=== PATIENT | male | born 1960 | race African-American/Black ===

== ENCOUNTER 2018-04-27 07:04 | Emergency (ER) | payer OTHER ==
[~2018-04-27] VITALS: Ht 167.6 cm; Wt 77.6 kg
[2018-04-27 07:11] VITALS: BP 140/89
[2018-04-27] MEDS ORDERED: ALLOPURINOL 10100 M1 PO (07:12)
[2018-04-27] MEDS ORDERED: TART CHERRY CA1 EACH PO (07:13)
[2018-04-27] MEDS ORDERED: PERCOCET 5-3251 EACH PO (07:23)
[2018-04-27] MEDS ORDERED: PREDNISONE 20 M20 M1 PO (07:23)
== END 2018-04-27 07:44 | disposition home or self-care (01) ==
LOC: M.ERS 07:04
DX: M10.9 Gout, unspecified (principal)

== ENCOUNTER 2021-04-02 03:31 | Emergency (ER) | payer OTHER ==
[~2021-04-02] VITALS: Ht 167.6 cm; Wt 77.1 kg
[~2021-04-02 03:31] MED LIST: ALLOPURINOL 10100 M1 PO; PERCOCET 5-3251 EACH PO; PREDNISONE 20 M20 M1 PO; TART CHERRY CA1 EACH PO
[2021-04-02] MEDS ORDERED: CEPHALEXIN500 MG PO (06:55)
[2021-04-02 07:08] VITALS: BP 126/68
== END 2021-04-02 07:08 | disposition home or self-care (01) ==
LOC: M.ERS 03:31
DX: S01.81XA Laceration without foreign body of other part of head, initial encounter (principal); S01.01XA Laceration without foreign body of scalp, initial encounter; F10.129 Alcohol abuse with intoxication, unspecified; Z79.899 Other long term (current) drug therapy; W01.198A Fall on same level from slipping, tripping and stumbling with subsequent striking against other object, initial encounter; Y93.89 Activity, other specified; Y92.89 Other specified places as the place of occurrence of the external cause; Y99.9 Unspecified external cause status; Y90.9 Presence of alcohol in blood, level not specified

== ENCOUNTER 2021-04-09 14:54 | Emergency (ER) | payer OTHER ==
[~2021-04-09] VITALS: Ht 167.6 cm; Wt 76.2 kg
[~2021-04-09 14:54] MED LIST changes: +CEPHALEXIN500 MG PO
[2021-04-09 16:07] VITALS: BP 142/76
[2021-04-09] MEDS ORDERED: APAP W/CODEINE1 TA2 PO (16:18)
[2021-04-09] MEDS ORDERED: IBUPROFEN 600600 M1 PO (16:18)
== END 2021-04-09 16:08 | disposition home or self-care (01) ==
LOC: M.ERS 14:54
DX: S01.81XD Laceration without foreign body of other part of head, subsequent encounter (principal); Z79.899 Other long term (current) drug therapy; X58.XXXD Exposure to other specified factors, subsequent encounter